=== PATIENT | male | born 1935 | race Caucasian/White ===

== ENCOUNTER 2016-10-18 15:17 | Emergency (ER) | payer OTHER, BC ==
[~2016-10-18] VITALS: Ht 175.3 cm; Wt 70.3 kg
[~2016-10-18 15:17] MED LIST: IBUPROFEN 600600 M1 PO; MULTIVITAMINS PO; TAMSULOSIN HCL0.4 M1 PO; TIZANIDINE HCL4 MG PO; ULTRAM 50MG TAB50 MG PO
[2016-10-18 17:11] LABS: HEMATOCRIT 40.8 % (42.0-52.0); HEMOGLOBIN 13.8 gm/dL (14.0-18.0); MCH 31.9 pg (26.0-34.0); MCHC 33.9 g/dL (28.0-37.0); PLATELET COUNT 269 thou/uL (150-400); RBC 4.34 mil/uL (4.50-6.00); RDW 12.9 % (10.5-14.5); WBC 5.1 thou/uL (4.0-11.0)
[2016-10-18 17:13] LABS: MANUAL DIFF YES
[2016-10-18 17:23] LABS: ANION GAP 6 mmol/L (7-16); BUN 10 mg/dL (7-18); CALCIUM 8.8 mg/dL (8.5-10.1); CHLORIDE 103 mmol/L (98-107); CO2 27 mmol/L (21-32); CREATININE 0.9 mg/dL (0.7-1.3); GLUCOSE 85 mg/dL (74-106); POTASSIUM 3.7 mmol/L (3.5-5.1); SODIUM 136 mmol/L (136-145)
[2016-10-18 17:27] LABS: ALBUMIN 3.5 g/dL (3.4-5.0); ALKALINE PHOSPHATASE 52 U/L (46-116); DIRECT BILIRUBIN < 0.1 mg/dL (<0.1-0.3); SGOT 18 U/L (15-37); SGPT 16 U/L (30-65); TOTAL BILIRUBIN 0.3 mg/dL (<0.1-1.0)
[2016-10-18 17:31] LABS: ABSOLUTE NEUTROPHILS 3.1 thou/uL (1.4-8.2); TOTAL CELL COUNT 100
[2016-10-18] MEDS ORDERED: MEDROLDOSEPACK PO (19:29)
== END 2016-10-18 19:42 | disposition home or self-care (01) ==
LOC: ER 15:17
PROVIDERS: Nurse Practitioner
DX: H49.01 Third [oculomotor] nerve palsy, right eye (principal); F10.99 Alcohol use, unspecified with unspecified alcohol-induced disorder; Z98.890 Other specified postprocedural states; Z85.828 Personal history of other malignant neoplasm of skin